=== PATIENT | male | born 1995 | race Caucasian/White ===

== ENCOUNTER 2023-05-10 13:07 | Emergency (ER) | payer SELFPAY ==
[2023-05-10 13:13] VITALS: BP 122/79; PULSE 100; RESP 20; TEMP 36.7; O2SAT 100
--- NOTE | 2023-05-10 13:15 | DI.CT_ITS ---
Exam(s) CT ABDOMEN PELVIS W EXAM: CT ABDOMEN PELVIS W CLINICAL HISTORY: blood in stool, lower abd pain TECHNIQUE: Imaging Protocol: Axial computed tomography images with coronal and sagittal reformatted images were created and reviewed CONTRAST MATERIAL: Intravenous: Omnipaque 350 Contrast volume:100 mL Oral: No COMPARISON: No exams were available for comparison FINDINGS: ABDOMEN: Lung Bases: Normal where visualized. Liver: Normal density. No measurable mass. Portal, Superior Mesenteric, and Splenic Veins: Unremarkable. Gallbladder and Biliary Tract: No radiodense calculus or dilation. Pancreas: Normal density, no abnormal calcifications or inflammatory process. Spleen: Normal. Adrenals: No masses seen. Kidneys: Normal size, contour and axis. There is left nephrolithiasis. No hydronephrosis. No ureter olithiasis. No masses seen. Abdominal Aorta: Abdominal portion non-dilated. Bowel: No obstruction or bowel wall thickening. Appendix is unremarkable. Peritoneal Cavity: No ascites, collection or mesenteric inflammatory response. No free air. Lymph Nodes: Within normal limits. Bones: Within normal limits for the patient's age. Soft Tissues: Unremarkable. PELVIS: Bladder: Symmetric distention, no gross wall thickening. Reproductive Organs: Unremarkable as visualized. Lymph Nodes: Within normal limits. Bones: Within normal limits for the patient's age. IMPRESSION: 1. No acute abdominal or pelvic process. 2. Findings were discussed with the emergency department at 3 p.m. on 05/10/2023. RADIATION DOSE DELIVERED: 514.76mGy.cm Total DLP DATA REPOSITORY: All CT scans at this facility are submitted to the National Radiology Data Registry (NRDR) Dose Index Registry (DIR) with the [employer] (A[employer]). RADIATION OPTIMIZATION: All CT scans at this facility use at least one of these dose optimization te chniques: automated exposure control; mA and/or kV adjustment per patient size (includes targeted exa ms where dose is matched to clinical indication); or iterative reconstruction.
--- NOTE | 2023-05-10 13:30 | ED.GENADUL_ITS ---
Discharge Plan Disposition Patient Disposition: Home Condition: Stable Discharge Details Chief Complaint: Abd Prob Clinical Impression: Rectal bleeding Primary Care Provider: [facility] Provider: Herminio Razo Home Meds and New Rx's Prescriptions: No Action naproxen 500 MG tablet 500 mg PO BID PRN (Reason: Pain) Qty: 20 0RF Discharge Instructions Instructions: Rectal Bleeding (ED) Additional Instructions: Please follow-up with GI team. Please return to the emergency department for any worsening symptoms Medical Decision Making 27-year-old male presents with blood in stool and in toilet bowl this morning, chronic abdominal pain over the last several months, denies fevers chills night sweats weight loss or family history of colorectal cancer, patient is mildly tachycardic otherwise hemodynamically stable, alert oriented nontoxic nonperitoneal, normal external and internal rectal examination, faintly positive guaiac, consider small internal hemorrhoid versus small anal fissure versus gastritis versus malignancy versus colitis. Screening labs CT abdomen pelvis, H2 analisa, antiemetics fluids close reassessment 16: 01 Labs imaging unremarkable. She resting comfortably asymptomatic. Patient be given GI follow-up with department for further evaluation. Home care instructions return precautions given HPI General Date/Time Provider Initiated Documentation: 05/10/23 13:17 . HPI Narrative: 27-year-old male presents with blood in stool that he noticed this morning admixed with stool and in the bowl, some lower abdominal pain over the past several weeks to months, denies weight loss night sweats fevers chills or family history of young individuals with colorectal cancer in the family. Related Data Home Medications Medication Instructions Recorded Confirmed naproxen 500 mg tablet 500 mg PO BID PRN Pain ##20 06/03/17 Previous Rx's Medication Instructions Recorded naproxen 500 mg tablet 500 mg PO BID PRN Pain ##20 06/03/17 Allergies Allergy/AdvReac Type Severity Reaction Status Date / Time No Known Allergies Allergy Unverified 06/03/17 00:20 General Stated Complaint: Abd Prob YANETH: 3 Review of Systems Narrative: Review of Systems Constitutional: negative Eyes: negative ENT: negative Cardiovascular: negative Respiratory: negative Gastrointestinal: Abdominal pain, rectal bleeding : negative Musculoskeletal: negative Skin: negative Neurologic: negative Psych: negative PFSH All Active Problems (Updated 05/10/23 @ 16:02 by Herminio Razo MD) Rectal bleeding (Acute) Social History Smoking/Tobacco Use Status: Never Smoking risk assessment performed?: Yes Alcohol Intake: never Substance use type: does not use Housing: apartment Do you feel safe at home: Yes Do you feel safe in your relationship?: Yes Exam Narrative Exam Narrative: Physical Examination General: alert, awake, cooperative, resting comfortably, no acute distress HEENT: normocephalic, atraumatic; PERRL, EOM intact, conjunctiva normal; no nasal discharge; moist mucous membranes, oral and pharyngeal mucosa normal, tolerating secretions Neck: supple, trachea midline; full ROM Chest: normal to inspection Respiratory: normal respiratory effort, speaking in full sentences, clear to auscultation, no wheezing, rales or rhonchi Cardiac: regular rate, regular rhythm, S1S2 intact, no murmurs rubs or gallops GI: abdomen soft, non-tender, non-distended; no palpable mass or hepatosplenomegaly; no appreciable hemorrhoids or anal fissures, no appreciable rectal mass, faintly positive guaiac Skin: no lesions, rashes or trauma appreciated Neuro: AAOx3, normal speech, moving all extremities Psych: Appropriate mood and affect Course Vital Signs Vital signs: Vital Signs Temperature 36.7 C 05/10/23 13:13 Pulse 100 H 05/10/23 13:13 Respiratory Rate 20 05/10/23 13:13 Blood Pressure 122/79 05/10/23 13:13 Pulse Oximetry 100 05/10/23 13:13 Temperature 36.7 C 05/10/23 13:13 Temperature Source Oral 05/10/23 13:13 Pulse 100 H 05/10/23 13:13 Respiratory Rate 20 05/10/23 13:13 Respiratory Effort Normal, Non-Labored 05/10/23 13:16 Blood Pressure 122/79 05/10/23 13:13 Blood Pressure Position Sitting 05/10/23 13:13 Pulse Oximetry 100 05/10/23 13:13 Oxygen Delivery Method Room Air 05/10/23 13:13 Oxygen Flow Rate 0 05/10/23 13:13 Pain Level 0 05/10/23 13:13
[2023-05-10 13:42] LABS: Abs Immature Grans 0.01 10^3/uL (0.0-0.06); Absolute Basophil Count 0.08 10^3/uL (0.0-0.2); Absolute Lymphocyte Count 1.69 10^3/uL (1.2-3.4); Absolute Monocyte Count 0.46 10^3/uL (0.1-0.8); Absolute Neutrophil Count 2.51 10^3/uL (1.2-6.7); Basophils % 1.5; Eosinophils % 9.5; HGB 16.1 g/dL (13.5-17.5); Immature Grans % 0.2; Lymphocytes % 32.2; MCH 29.8 pg (27.0-33.0); MCHC 34.3 % (32.0-36.0); MCV 87 fL (80-95); MPV 10.3 fL (8.0-11.0); Monocytes % 8.8; Neutrophils % 47.8; Platelet Count 251 10^3/uL (130-400); RBC 5.41 10^6/uL (4.36-5.78); RDW 12.5 % (11.8-14.1); RDW-SD 39.7 fL; WBC 5.25 10^3/uL (4.4-10.8)
[2023-05-10 13:54] LABS: PTT Activated 27.2 sec (21.5-31.9); Prothrombin Time 10.2 sec (9.3-11.0)
[2023-05-10 14:01] LABS: ALT 30 U/L (16-63); AST 16 U/L (15-37); Albumin 4.7 g/dL (3.4-5.0); Alkaline Phosphatase 76 U/L (46-116); Anion Gap 9.8 mmol/L (3-11); BUN 15 mg/dL (7-18); CO2 29.2 mmol/L (21.0-32.0); CREATININE 0.9 mg/dL (0.70-1.30); Calcium 9.3 mg/dL (8.5-10.1); Chloride 100 mmol/L (98-107); Estimated GFR 118.57 (mL/min/1.73m2); Glucose 91 mg/dL (74-106); Potassium 3.5 mmol/L (3.5-5.1); Sodium 139 mmol/L (136-145); Total Protein 8.1 g/dL (6.4-8.2)
[2023-05-10] MEDS: Ondansetron 4 MG/2 ML VIAL IVP (14:01)
[2023-05-10] MEDS: Normal Saline 1,000 ML 1000 ML IV (14:01)
[2023-05-10] MEDS: Famotidine 20 MG/2 ML VIAL IVP (14:05)
[2023-05-10] MEDS: Omnipaque 350 MG/ML 100 ML BTL IJ (14:33)
[2023-05-10] MEDS: Normal Saline - Diluent 50 ML VIAL IJ (14:34)
--- NOTE | 2023-05-10 16:36 | NUR.NOTE ---
Referral given to Care Management to [facility] for rectal bleeding in 1 to 2 weeks. Nursing Note:
== END 2023-05-10 16:27 | disposition home or self-care (01) ==
PROVIDERS: Emergency Provider Emergency Medicine
DX: K62.5 Hemorrhage of anus and rectum (principal)
CPT/HCPCS: 80053; 96361; 96374; 96375; 99285; 74177; 85025; 85610; 85730; 99284; J2405; J3490